=== PATIENT | female | born 1985 | race Caucasian/White ===

== ENCOUNTER 2017-06-12 01:14 | Emergency (ER) | payer SELFPAY ==
[~2017-06-12] VITALS: Ht 172.7 cm; Wt 56.7 kg
[2017-06-12] MEDS ORDERED: MORPHINE SULF INJ 2 MG/ML SYRINGE 1ML ONE (01:24)
[2017-06-12] MEDS ORDERED: ONDANSETRON HCL 4 MG/2 ML VIAL ONE (01:24)
[2017-06-12] MEDS ORDERED: cefTRIAXone SOD 1,000 MG VL ONE (01:47)
[2017-06-12] MEDS ORDERED: HYDROmorphone HCL 2 MG/ML VL ONE (01:52)
[2017-06-12] MEDS ORDERED: HYDROmorphone HCL 2 MG/ML VL IV ONE (02:00)
[2017-06-12] MEDS ORDERED: cefTRIAXone 1GM/10ml IVPUSH 10 ML IV ONE (02:00)
[2017-06-12] MEDS ORDERED: NEOMYCIN-BACITRACIN-POLYM UNITDOSE PKG TOP OINT TOP ONE (02:00)
[2017-06-12] MEDS ORDERED: TETANUS-DIPTH-ACEL PERTUSSIS 0.5ML SYRG IM ONE (02:30)
[2017-06-12] MEDS ORDERED: MEPERIDINE HCL (50 MG/ML) 1 ML VIAL IV ONE (03:30)
[2017-06-12] MEDS ORDERED: LORazepam 0.5 MG TAB PO ONE (04:00)
[2017-06-12 04:10] VITALS: BP 118/90
== END 2017-06-12 04:11 | disposition home or self-care (01) ==
LOC: ER 01:17
DX: T23.202A Burn of second degree of left hand, unspecified site, initial encounter (principal); T22.112A Burn of first degree of left forearm, initial encounter; G92 Toxic encephalopathy; F15.10 Other stimulant abuse, uncomplicated; F17.210 Nicotine dependence, cigarettes, uncomplicated; F12.10 Cannabis abuse, uncomplicated; X03.0XXA Exposure to flames in controlled fire, not in building or structure, initial encounter; Y93.89 Activity, other specified; Y99.8 Other external cause status; Y92.89 Other specified places as the place of occurrence of the external cause
CPT/HCPCS: 90715; 96365; 96375; 99284; J0696; J1170; J2175; J2270; J2405

== ENCOUNTER 2023-01-20 19:28 | Emergency (ER) | payer MEDICAID ==
[~2023-01-20] VITALS: Ht 175.3 cm; Wt 55.4 kg
[2023-01-21] MEDS ORDERED: KETOROLAC TROMETH 60MG/2ML VIAL IM ONE (01:15)
[2023-01-21] MEDS ORDERED: NEOMYCIN-BACITRACIN-POLYM UNITDOSE PKG TOP OINT TOP ONE (01:30)
[2023-01-21] MEDS ORDERED: HYDROcodone-ACET 5/325MG TAB PO ONE (01:30)
[2023-01-21] MEDS ORDERED: TETANUS-DIPTH-ACEL PERTUSSIS 0.5ML SYR Tdap IM ONE (01:30)
[2023-01-21] MEDS ORDERED: MUPI2OIN2 EX (01:37)
[2023-01-21] MEDS ORDERED: DOXY-286 PO (01:37)
[2023-01-21] MEDS ORDERED: IBU600T PO (01:37)
[2023-01-21 01:40] VITALS: BP 97/59
== END 2023-01-21 02:09 | disposition home or self-care (01) ==
LOC: ER 19:28
DX: S42.031A Displaced fracture of lateral end of right clavicle, initial encounter for closed fracture (principal); S43.401A Unspecified sprain of right shoulder joint, initial encounter; S00.03XA Contusion of scalp, initial encounter; S50.312A Abrasion of left elbow, initial encounter; F17.210 Nicotine dependence, cigarettes, uncomplicated; F15.90 Other stimulant use, unspecified, uncomplicated; F19.90 Other psychoactive substance use, unspecified, uncomplicated; V00.131A Fall from skateboard, initial encounter; Y93.89 Activity, other specified; Y92.89 Other specified places as the place of occurrence of the external cause; Y99.8 Other external cause status
CPT/HCPCS: 70450; 73000; 73030; 90471; 90715; 96372; 99285; J1885